=== PATIENT | female | born 1970 | race Caucasian/White ===

== ENCOUNTER 2019-11-21 12:42 | Emergency (ER) | payer OTHER ==
[~2019-11-21] VITALS: Ht 177.8 cm; Wt 59.1 kg
[2019-11-21 14:01] VITALS: BP 130/79
--- NOTE | 2019-11-21 14:11 | NUR ---
Pt tearful upon entry to room. While assessing pt she explained her hx with "medical doctors not listening to me," sharing that her last encounter was with [facility] where a dx of MS was highly suspected, but that she had not followed up to confirm. Pt has been seeking alternative medical options as she communicates "being highly suspicious that doctor's don't do their jobs or listen." Pt was redirectable and assessment continued.
--- NOTE | 2019-11-21 14:18 | NUR ---
Pt refusing IV start indicated she will not accept IV meds at this time. She is ok with a lab draw. JOSÉ MIGUEL Hemphill notified.
--- NOTE | 2019-11-21 14:22 | NUR ---
JOSÉ MIGUEL NASCIMENTO IN ROOM TO ASSESS PT. SHE EXPLAINED THE KNOWN LEFT LUMP, DX A FATTY TUMOR, WAS CAUSING HER PROBLEMS, SPECIFICALLY INCREASED DISCOMFORT AND INHIBITED INHALATION. DR NASCIMENTO ASKED IF ANYTHING HAD CHANGE AND WAS ABOUT TO ASSESS PT WHILE SAYING AN IMAGE WAS ALREADY ON RECORD WHEN SHE BECAME VERBALLY UPSET AND TOLD HIM TO "YOU DON'T KNOW IF THERE'S AN INFECTION IN THERE. YOU DON'T KNOW IF THERE'S A PROBLEM." PT, MORE VISIBLY UPSET THEN ORDER THE EDMD OUT OF THE ROOM. pT WAS TEARFUL. EFFORTS TO CALM HER APPEARED SUCCESSFUL, BUT SHE LEFT WHILE THIS RN WAS IN ANOTHER PT ROOM.
== END 2019-11-21 14:50 | disposition left against medical advice (07) ==
LOC: ER 12:42
DX: D17.1 Benign lipomatous neoplasm of skin and subcutaneous tissue of trunk (principal); R07.89 Other chest pain; Z88.0 Allergy status to penicillin
CPT/HCPCS: 93005; 99283

== ENCOUNTER 2022-02-15 08:33 | Outpatient (CLI) | payer OTHER | END 2022-02-15 23:59 | disposition home or self-care (01) | LOC: RAD 08:33 | PROVIDERS: ATTEND Nurse Practitioner Family | DX: R94.01 Abnormal electroencephalogram [EEG] (principal); R56.9 Unspecified convulsions | CPT/HCPCS: 95819 ==